=== PATIENT | female | born 1970 | race Caucasian/White ===

== ENCOUNTER 2021-02-06 09:52 | Emergency (ER) | payer BC, MEDICAID, OTHER ==
[2021-02-06] MEDS ORDERED: Sodium Chloride 0.9% 10 ML Syringe FLUSH PRN (10:13)
[2021-02-06] MEDS ORDERED: Sodium Chloride 0.9% 1,000 ML IV ONE (10:13)
[2021-02-06] MEDS ORDERED: Ondansetron 4 MG/2 ML SDV IVPUSH ONE ×2 (10:13→11:59)
[2021-02-06] MEDS ORDERED: HYDROmorphone 1 MG/ML Syringe IVPUSH ONE ×2 (10:13→11:59)
[2021-02-06] MEDS ORDERED: Iopamidol 612 MG/ML 100 ML Bottle IVPUSH ONE (10:21)
--- NOTE | 2021-02-06 10:27 | EDM.PDOC ---
ED HPI GENERAL MEDICAL PROBLEM - General Stated Complaint: ABDOMINAL PAIN/diarrhea Time Seen by Provider: 02/06/21 10:10 Source of Information: Reports: Patient History Limitations: Reports: No Limitations - History of Present Illness INITIAL COMMENTS - FREE TEXT/NARRATIVE: Patient presents to the ED for abdominal pain, episode of profuse diarrhea, nausea, lack of appetite and lower back discomfort. Patient states she had a 2 foot fall from a standing position on 02/02/2021. Fell on to her buttocks and had some mild right SI joint pain. Didn't think much about it and had a hamburger that night. She developed profuse diarrhea a few hours later to the point that she just sat on the toliet for 2-3 hours continuous and had watery diarrhea. Did not see any blood. Complained of sharp abdominal cramping. She then laid in the tub in water and fell asleep. Awoke in the tub with water being brown. NO bowel movement since then. Loss of appetite, feels sweaty and chilled. Continues with lower abdominal pain, dark urine. Has not had anything like this before Onset Date: 02/02/21 Location: Reports: Abdomen Severity: Moderate Improves with: Reports: None Worsens with: Reports: Eating Associated Symptoms: Reports: Fever/Chills, Loss of Appetite, Nausea/Vomiting - Related Data Allergies Allergy/AdvReac Type Severity Reaction Status Date / Time adhesive tape Allergy Redness Verified 02/06/21 09:54 gluten Allergy Diarrhea, Verified 02/06/21 09:54 severe abdominal pain Home Meds: Home Meds SUMAtriptan succinate [Imitrex] 4 mg SQ ASDIRECTED PRN 05/19/15 [History] Topiramate 4 tab PO BID 12/08/17 [History] Doxycycline [Vibramycin] 100 mg PO DAILY PRN 12/06/20 [History] busPIRone [Buspar] 5 mg PO BID 12/06/20 [History] Dicyclomine [Bentyl] 10 mg PO TID PRN #15 cap 02/06/21 [Rx] Ondansetron [Zofran ODT] 4 mg PO Q6H PRN #12 tab.dis 02/06/21 [Rx] Past Medical History HEENT History: Reports: Allergic Rhinitis, Impaired Vision, Sinusitis, Other (See Below) Other HEENT History: Allergic rhinitis and sinusitis. Patient wears glasses. Cardiovascular History: Reports: Other (See Below) Other Cardiovascular History: She does not know cholesterol status with history of fatty liver. Borderline anterior wall cardiac ischemia by EKG with no workup. Chronic hypotension. Respiratory History: Reports: Intubation, Previous, Pneumothorax Gastrointestinal History: Reports: Celiac Disease, Cholelithiasis, Chronic Constipation, Chronic Diarrhea, Diverticulosis, GERD, Other (See Below) Other Gastrointestinal History: Diarrhea with gluten exposure. Despite previous medical records patient denies known inflammatory bowel disease. History of recurrent diverticulitis including on 03/27/16 and 09/08/17 with sigmoid diverticulosis by colonoscopy as below. GERD with esophagitis. Fatty liver. Genitourinary History: Reports: Renal Calculus, Other (See Below) Other Genitourinary History: History of urolithiasis in 2012 with spontaneous passageside unknown. ARM REST BUILDER History: Reports: Dysfunctional Uterine Bleeding, Fibroids, , Spontaneous Other ARM REST BUILDER History: Surgical menopause secondary to right ovarian cancer as below. Hypotension with last 2 pregnancies. SAB during first trimester with D&C as below. Otherwise Full term without complications during pregnancies or deliveries. Fibrocystic breast disease. Musculoskeletal History: Reports: Arthritis, Back Pain, Chronic, Fracture, Osteoarthritis, Other (See Below) Other Musculoskeletal History: Gliosis with chronic low back pain. Fracture of the right thumb in 1988. Neurological History: Reports: Headaches, Chronic, Migraines, Seizure, Other (See Below) Other Neuro History: Unknown type of seizures during teenage years with last seizure at age 20. 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 Skin infection cultured with MRSA in the right armpit diagnosed on 05/13/15 spread to under left breast, left arm pit, and right side of neck. Acne vulgaris. - Infectious Disease History Infectious Disease History: Reports: Chicken Pox, Mononucleosis, MRSA, Shingles - Past Surgical History Head Surgeries/Procedures: Reports: None HEENT Surgical History: Reports: Oral Surgery, Other (See Below) Other HEENT Surgeries/Procedures: [place] teeth extraction 4 at age 24. Cardiovascular Surgical History: Reports: None Respiratory Surgical History: Reports: None GI Surgical History: Reports: Cholecystectomy, Colonoscopy, EGD, Other (See Below) Other GI Surgeries/Procedures: Laparoscopic cholecystectomy in 2014. EGD with biopsy on 12/07/14. Colonoscopy on 08/09/15. Female Surgical History: Reports: D&C, Hysterectomy, Salpingo-Oophorectomy, Other (See Below) Other Female Surgeries/Procedures: Complete hysterectomy with right-sided salpingo-oophorectomy secondary to ovarian cancer in 2007. D&C in 1993 secondary to SAB as above. Endocrine Surgical History: Reports: None Neurological Surgical History: Reports: None Musculoskeletal Surgical History: Reports: None Oncologic Surgical History: Reports: None Dermatological Surgical History: Reports: None - Past Imaging History Past Imaging History: Reports: CAT Scan (CT of the head on 12/07/13. CT of the abdomen and pelvis with contrast last on 09/08/17 with previous evaluations on 04/10/16, 03/27/16, 01/25/16 and 02/14/15), Mammogram (Last mammogram on 01/29/17.), MRI (MRI of the lumbar spine on 04/02/15, 01/10/14, and 01/03/14.), Ultrasound (Pelvic ultrasounds on 09/08/17 and 11/13/16. Bilateral renal ultrasound on 03/23/17. 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 Denies: Rhinitis, Sinus Problem, Throat Pain, Throat Swelling Respiratory: Reports: No Symptoms. Denies: Shortness of Breath, Wheezing, Pleu ritic Chest Pain, Cough Cardiovascular: Reports: No Symptoms. Denies: Chest Pain, Blood Pressure Problem, Dyspnea on Exertion, Palpitations Endocrine: Reports: No Symptoms GI/Abdominal: Reports: Abdominal Pain, Anorexia, Diarrhea, Decreased Appetite, Nausea. Denies: Difficulty Swallowing, Hematemesis, Hematochezia, Vomiting : Reports: Other (dark urine). Denies: Dysuria, Frequency Musculoskeletal: Reports: Other (mysalgias). Denies: Neck Pain, Shoulder Pain, Leg Pain Skin: Reports: No Symptoms Neurological: Reports: No Symptoms. Denies: Confusion, Dizziness, Headache, Numbness, Paresthesia, Tremors, Trouble Speaking Psychiatric: Reports: No Symptoms. Denies: Agitation, Anxiety ED EXAM, GI/ABD - Physical Exam Exam: See Below Exam Limited By: No Limitations General Appearance: Alert, WD/WN, No Apparent Distress Eyes: Bilateral: Normal Appearance, EOMI Ears: Normal External Exam, Normal Canal Nose: Normal Inspection, Normal Mucosa Throat/Mouth: Normal Inspection, Normal Lips, Normal Teeth, Normal Voice, Other (mild dry tongue) Head: Atraumatic, Normocephalic Neck: Normal Inspection, Supple, Non-Tender, Full Range of Motion Respiratory/Chest: No Respiratory Distress, Lungs Clear, Normal Breath Sounds, No Accessory Muscle Use, Chest Non-Tender Cardiovascular: Normal Peripheral Pulses, Regular Rate, Rhythm, No Murmur GI/Abdominal Exam: Soft, Tender (rlq and llq), Abnormal Bowel Sounds (decreased) Back Exam: Normal Inspection, Full Range of Motion, Other (mild tenderness to palpation of the right SI joint. no lesions or rashes). No: CVA Tenderness (L), CVA Tenderness (R) Extremities: Normal Inspection, Normal Range of Motion, Non-Tender Course - Orders/Labs/Meds Orders: Active Orders 24 hr Category Date Time Status Sodium Chloride 0.9% [Saline Flush] Med 02/06/21 10:13 Active 10 ml FLUSH ASDIRECTED PRN Peripheral IV Insertion Adult [OM.PC] Routine Oth 02/06/21 10:13 Ordered Medication Orders Sodium Chloride (Sodium Chloride 0.9% 10 Ml Syringe) 10 ml FLUSH ASDIRECTED PRN PRN Reason: Keep Vein Open Labs: Laboratory Tests 02/06/21 02/06/21 02/06/21 Range/Units 10:23 10:23 10:23 WBC 4.3 (4.0-10.0) x10^3/uL RBC 4.25 (4.00-5.50) x10^6/uL Hgb 12.6 (12.0-16.0) g/dL Hct 38.4 (33.0-47.0) % MCV 90.4 (78.0-93.0) fL MCH 29.6 (26.0-32.0) pg MCHC 32.8 (32.0-36.0) g/dL RDW Coeff of Steph 14.4 (10.0-15.0) % Plt Count 240 (130-400) x10^3/uL Neut % (Auto) 56.1 (50.0-80.0) % Lymph % (Auto) 30.0 (25.0-50.0) % [place] % (Auto) 11.3 H (2.0-11.0) % Eos % (Auto) 2.1 (0.0-4.0) % Baso % (Auto) 0.5 (0.2-1.2) % Sodium 141 (136-145) mmol/L Potassium 3.8 (3.5-5.1) mmol/L Chloride 107 (98-107) mmol/L Carbon Dioxide 24 (21-32) mmol/L Anion Gap 13.8 (5-15) mmol/L BUN 19 H (7-18) mg/dL Creatinine 0.8 (0.55-1.02) mg/dL Est Cr Clr Drug Dosing TNP Estimated GFR (MDRD) > 60 Glucose 98 (70-99) mg/dL Lactic Acid 0.8 (0.4-2.0) mmol/L Calcium 8.8 (8.5-10.1) mg/dL Corrected Calcium 9.0 (8.5-10.1) mg/dL Total Bilirubin 0.7 (0.2-1.0) mg/dL AST 13 L (15-37) U/L ALT 21 (14-59) U/L Alkaline Phosphatase 74 (46-116) U/L C-Reactive Protein < 0.2 (<=0.9) mg/dL Total Protein 7.1 (6.4-8.2) g/dL Albumin 3.7 (3.4-5.0) g/dL Globulin 3.4 Albumin/Globulin Ratio 1.09 Lipase 67 L (73-393) U/L Urine Color (YELLOW) Urine Appearance (CLEAR) Urine pH (5.0-8.0) Ur Specific [place] Urine Protein (NEGATIVE) mg/dL Urine Glucose (UA) (NEGATIVE) mg/dL Urine Ketones (NEGATIVE) mg/dL Urine Occult Blood (NEGATIVE) Urine Nitrite (NEGATIVE) Urine Bilirubin (NEGATIVE) Urine Urobilinogen (0.2) EU/dL Ur Leukocyte Esterase (NEGATIVE) 02/06/21 Range/Units 11:48 WBC (4.0-10.0) x10^3/uL RBC (4.00-5.50) x10^6/uL Hgb (12.0-16.0) g/dL Hct (33.0-47.0) % MCV (78.0-93.0) fL MCH (26.0-32.0) pg MCHC (32.0-36.0) g/dL RDW Coeff of Steph (10.0-15.0) % Plt Count (130-400) x10^3/uL Neut % (Auto) (50.0-80.0) % Lymph % (Auto) (25.0-50.0) % [place] % (Auto) (2.0-11.0) % Eos % (Auto) (0.0-4.0) % Baso % (Auto) (0.2-1.2) % Sodium (136-145) mmol/L Potassium (3.5-5.1) mmol/L Chloride (98-107) mmol/L Carbon Dioxide (21-32) mmol/L Anion Gap (5-15) mmol/L BUN (7-18) mg/dL Creatinine (0.55-1.02) mg/dL Est Cr Clr Drug Dosing Estimated GFR (MDRD) Glucose (70-99) mg/dL Lactic Acid (0.4-2.0) mmol/L Calcium (8.5-10.1) mg/dL Corrected Calcium (8.5-10.1) mg/dL Total Bilirubin (0.2-1.0) mg/dL AST (15-37) U/L ALT (14-59) U/L Alkaline Phosphatase (46-116) U/L C-Reactive Protein (<=0.9) mg/dL Total Protein (6.4-8.2) g/dL Albumin (3.4-5.0) g/dL Globulin Albumin/Globulin Ratio Lipase (73-393) U/L Urine Color Dark yellow H (YELLOW) Urine Appearance Clear (CLEAR) Urine pH 5.0 (5.0-8.0) Ur Specific [place] 1.010 Urine Protein Negative (NEGATIVE) mg/dL Urine Glucose (UA) Negative (NEGATIVE) mg/dL Urine Ketones Negative (NEGATIVE) mg/dL Urine Occult Blood Negative (NEGATIVE) Urine Nitrite Negative (NEGATIVE) Urine Bilirubin Negative (NEGATIVE) Urine Urobilinogen 0.2 (0.2) EU/dL Ur Leukocyte Esterase Negative (NEGATIVE) Meds: Medications Generic Name Dose Route Start Last Admin Trade Name Freq PRN Reason Stop Dose Admin Sodium Chloride 10 ml 02/06/21 10:13 Sodium Chloride 0.9% 10 Ml Syringe FLUSH ASDIRECTED PRN Keep Vein Open Discontinued Medications Generic Name Dose Route Start Last Admin Trade Name Freq PRN Reason Stop Dose Admin Hydromorphone HCl 1 mg 02/06/21 10:13 02/06/21 10:26 Hydromorphone 1 Mg/Ml Syringe IVPUSH 02/06/21 10:14 1 mg ONETIME ONE Administration Hydromorphone HCl 1 mg 02/06/21 11:59 Hydromorphone 1 Mg/Ml Syringe IVPUSH 02/06/21 12:00 ONETIME ONE Sodium Chloride 1,000 mls @ 999 mls/hr 02/06/21 10:13 02/06/21 10:26 Normal Saline IV 02/06/21 11:13 999 mls/hr ONETIME ONE Administration Iopamidol 75 ml 02/06/21 10:21 02/06/21 11:52 Iopamidol 612 Mg/Ml 100 Ml Bottle IVPUSH 02/06/21 10:22 100 ml ONETIME ONE Administration Ondansetron HCl 4 mg 02/06/21 10:13 02/06/21 10:26 Ondansetron 4 Mg/2 Ml Sdv IVPUSH 02/06/21 10:14 4 mg ONETIME ONE Administration Ondansetron HCl 4 mg 02/06/21 11:59 Ondansetron 4 Mg/2 Ml Sdv IVPUSH 02/06/21 12:00 ONETIME ONE - Radiology Interpretation Free Text/Narrative:: ct scan with mildly prominent stool in the proximal colon, diverticula, no diverticulitis, no acute findings, no bony abnormality interpreted by radiology. report at 12:17 - Re-Assessments/Exams Free Text/Narrative Re-Assessment/Exam: 02/06/21 10:42 will start an iv, give zofran, dilaudid, fluids, check labs, urine and ct abdomen and pelvis 02/06/21 12:16 CT images delayed in being received. another dose of pain medication and nausea medication. 02/06/21 12:27 nothing acute on the CT. will send with bentyl, zofran, advise OTC treatments for back pain. second dose of dilaudid and zofran given at discharge. advise probiotic Departure - Departure Time of Disposition: 12:23 Disposition: Home, Self-Care 01 Clinical Impression: Abdominal pain, Back pain - Discharge Information *PRESCRIPTION DRUG MONITORING PROGRAM REVIEWED*: Not Applicable *COPY OF PRESCRIPTION DRUG MONITORING REPORT IN PATIENT TITI: Not Applicable Prescriptions: Dicyclomine [Bentyl] 10 mg PO TID PRN #15 cap PRN Reason: Abdominal Pain Ondansetron [Zofran ODT] 4 mg PO Q6H PRN #12 tab.dis PRN Reason: Nausea Instructions: Abdominal Pain, Adult, [id number] Referrals: Ernesto Swenson, [facility] [Primary Care Provider] - Additional Instructions: Testing today did not reveal any infectious problems. Continue to hydrate. Use over the counter medications for pain, follow up with PCP. TAke the Bentyl for abdominal cramping. Use the zofran for nausea but this will cause constipation. Start an over the counter probiotic - My Orders Last 24 Hours: My Active Orders 02/06/21 10:13 Sodium Chloride 0.9% [Saline Flush] 10 ml FLUSH ASDIRECTED PRN Peripheral IV Insertion Adult [OM.PC] Routine - Assessment/Plan Last 24 Hours: My Active Orders 02/06/21 10:13 Sodium Chloride 0.9% [Saline Flush] 10 ml FLUSH ASDIRECTED PRN Peripheral IV Insertion Adult [OM.PC] Routine
[2021-02-06 10:57] LABS: CHLORIDE,CL 107 mmol/L (98-107); SODIUM,NA 141 mmol/L (136-145)
[2021-02-06 10:58] LABS: ANION GAP 13.8 mmol/L (5-15)
--- NOTE | 2021-02-06 12:20 | CT ---
[id number] CT/CT Abdomen Pelvis W IV EXAM: ABDOMEN AND PELVIS CT WITH CONTRAST INDICATION: ABDOMINAL PAIN, DIARRHEA, NAUSEA. COMPARISON: None. DISCUSSION: The gallbladder and uterus are surgically absent. There is a mildly prominent stool volume within the proximal colon. Multiple diverticula of the colon without evidence of diverticulitis. The liver, pancreas, spleen, adrenal glands, kidneys, small bowel, and the appendix are normal in appearance. No adenopathy, free air free fluid. Scattered degenerative changes in the spine. The osseous structures are otherwise unremarkable. IMPRESSION: 1. No acute findings. Gustavo Sanchez MD 02/06/21 2340 Thank you for allowing us to participate in the care of your patient.
[2021-02-06 18:26] VITALS: BP 132/109; PULSE 96
== END 2021-02-06 12:37 | disposition home or self-care (01) ==
LOC: VM.ED 09:52
DX: R10.31 Right lower quadrant pain (principal); R10.32 Left lower quadrant pain; M53.3 Sacrococcygeal disorders, not elsewhere classified; M19.90 Unspecified osteoarthritis, unspecified site; Z91.048 Other nonmedicinal substance allergy status; Z91.018 Allergy to other foods; Z79.899 Other long term (current) drug therapy
CPT/HCPCS: 74177; 80053; 81003; 83605; 83690; 85025; 86140; 96374; 96375; 96376; 99284; 99284-25; J1170; J2405; J7030; Q9967